=== PATIENT | male | born 1985 | race Caucasian/White ===

== ENCOUNTER → 2019-08-01 | Outpatient (CLI) | payer MEDICARE, OTHER ==
--- NOTE | 2019-08-01 15:49 | CT ---
EXAMINATION TYPE: CT sinus wo con DATE OF EXAM: 08/01/2019 COMPARISON: None HISTORY: Chronic sinusitis, recurrent sinus infections CT DLP: 632 mGycm CONTRAST: 0 mL of Isovue 300 The paranasal sinuses are examined in the axial plane at 2 mm thick sections. Reconstructed images i n the coronal plane were obtained. There is dental amalgam scatter artifact The maxillary sinuses are clear. The ethmoid air cells are clear. The sphenoid sinuses are clear. The frontal sinuses are clear. The septum is evaluated. There is septal deviation to the left. The ostiomeatal units are patent. IMPRESSIONS: 1. Normal paranasal sinus study. 2. Left septal deviation
== END | disposition home or self-care (01) ==
LOC: RADCTMAIN 15:24
PROVIDERS: ATTEND Family Medicine
DX: J34.2 Deviated nasal septum (principal); J32.9 Chronic sinusitis, unspecified
CPT/HCPCS: 70486

== ENCOUNTER → 2020-09-17 | Outpatient (CLI) | payer MEDICARE, OTHER ==
[2020-09-17 20:14] LABS: Basophils # (A) 0.06 X 10*3/uL (0.00-0.10); Basophils % (A) 0.7 %; Eosinophils # (A) 0.67 X 10*3/uL (0.04-0.35); Eosinophils % (A) 7.7 %; HCT 42.1 % (39.6-50.0); HGB 14.8 g/dL (13.0-17.0); Lymphocytes # (A) 3.45 X 10*3/uL (0.90-5.00); Lymphocytes % (A) 39.6 %; MCHC 35.2 g/dL (32.0-37.0); MCV 85.2 fL (80.0-97.0); Mean Platelet Volume 10.4 fL (9.5-12.2); Monocytes # (A) 0.44 X 10*3/uL (0.20-1.00); Neutrophils # (A) 4.01 X 10*3/uL (1.80-7.70); Platelet Count 235 X 10*3/uL (140-440); RBC 4.94 X 10*6/uL (4.40-5.60); RDW 13.3 % (11.5-14.5); WBC 8.72 X 10*3/uL (4.50-10.00)
[2020-09-18 12:06] LABS: African American GFR (CKD) 112.5 (60.0-200.0); Albumin 4.9 g/dL (3.80-4.90); Albumin/Globulin Ratio 2.04 (1.60-3.17); Anion Gap 15.7 mmol/L (4.00-12.00); Calcium 9.6 mg/dL (8.7-10.3); Carbon Dioxide 22.3 mmol/L (21.6-31.8); Globulin 2.4 g/dL (1.6-3.3); Non-African American GFR(CKD) 97.1 (60.0-200.0); Potassium 4.1 mmol/L (3.5-5.5); Total Bilirubin 0.6 mg/dL (0.3-1.2); Total Protein 7.3 g/dL (6.2-8.2)
== END | disposition home or self-care (01) ==
LOC: LABWHC1 13:51
PROVIDERS: ATTEND Physician Assistant
DX: G35 Multiple sclerosis (principal)
CPT/HCPCS: 36415; 80053; 85025

== ENCOUNTER 2020-12-20 23:37 | Observation (INO) | payer MEDICARE, OTHER ==
[2020-12-21] MEDS ORDERED: SODIUM CHLORIDE 0.9% 1,000 ML IV STA (01:07)
[2020-12-21] MEDS ORDERED: DEXAMETHASONE SOD PHOSPHATE 10 MG/ML 1 ML VIAL IVP STA ×2 (01:07→01:29)
[2020-12-21] MEDS ORDERED: levETIRAcetam IV 1,000 MG in SALINE 1 100ML.BAG IVPB ONE (01:15)
--- NOTE | 2020-12-21 01:21 | ED ---
Seizure HPI - General Chief Complaint: Seizure Stated Complaint: Seizure Source: EMS Mode of arrival: EMS - Related Data Allergies Allergy/AdvReac Type Severity Reaction Status Date / Time amoxicillin [From Augmentin] Allergy Rapid Verified 12/21/20 01:13 Heart Rate cephalexin [From Keflex] Allergy Unknown Verified 12/21/20 01:14 clavulanic acid Allergy Rapid Verified 12/21/20 01:13 [From Augmentin] Heart Rate Penicillins Allergy Unknown Verified 12/21/20 01:14 Sulfa (Sulfonamide Allergy Unknown Verified 12/21/20 01:15 Antibiotics) Review of Systems ROS Statement: Those systems with pertinent positive or pertinent negative responses have been documented in the HPI. ROS Other: All systems not noted in ROS Statement are negative. Past Medical History Past Medical History: No Reported History Additional Past Medical History / Comment(s): PER MOTHER History of Any Multi-Drug Resistant Organisms: None Reported Past Surgical History: No Surgical Hx Reported Past Psychological History: Depression Smoking Status: Never smoker Past Alcohol Use History: None Reported Past Drug Use History: None Reported Course Vital Signs 12/20/20 23:37 Temperature 98.0 F Pulse Rate 111 H Respiratory 18 Rate Blood Pressure 132/80 O2 Sat by Pulse 98 Oximetry Medical Decision Making - Lab Data Result diagrams: 12/21/20 00:20 12/21/20 00:20 Lab Results 12/21/20 12/21/20 12/21/20 Range/Units 00:20 00:20 01:46 WBC 7.8 (3.8-10.6) k/uL RBC 4.85 (4.30-5.90) m/uL Hgb 15.0 (13.0-17.5) gm/dL Hct 40.1 (39.0-53.0) % MCV 82.7 (80.0-100.0) fL MCH 30.9 (25.0-35.0) pg MCHC 37.3 H (31.0-37.0) g/dL RDW 13.9 (11.5-15.5) % Plt Count 202 (150-450) k/uL MPV 7.1 Neutrophils % 47 % Lymphocytes % 39 % Monocytes % 4 % Eosinophils % 6 % Basophils % 1 % Neutrophils # 3.7 (1.3-7.7) k/uL Lymphocytes # 3.1 (1.0-4.8) k/uL Monocytes # 0.3 (0-1.0) k/uL Eosinophils # 0.5 (0-0.7) k/uL Basophils # 0.1 (0-0.2) k/uL Hyperchromasia Marked Sodium 136 L (137-145) mmol/L Potassium 4.2 (3.5-5.1) mmol/L Chloride 105 (98-107) mmol/L Carbon Dioxide 22 (22-30) mmol/L Anion Gap 9 mmol/L BUN 13 (9-20) mg/dL Creatinine 0.86 (0.66-1.25) mg/dL Est GFR (CKD-EPI)AfAm >90 (>60 ml/min/1.73 sqM) Est GFR (CKD-EPI)NonAf >90 (>60 ml/min/1.73 sqM) Glucose 115 H (74-99) mg/dL Calcium 9.3 (8.4-10.2) mg/dL Magnesium 2.1 (1.6-2.3) mg/dL Total Bilirubin 0.5 (0.2-1.3) mg/dL AST 30 (17-59) U/L ALT 43 (4-49) U/L Alkaline Phosphatase 85 (38-126) U/L Total Protein 7.2 (6.3-8.2) g/dL Albumin 4.7 (3.5-5.0) g/dL Urine Color Light Yellow Urine Appearance Clear (Clear) Urine pH 5.5 (5.0-8.0) Ur Specific [place] 1.014 (1.001-1.035) Urine Protein Trace H (Negative) Urine Glucose (UA) Negative (Negative) Urine Ketones Trace H (Negative) Urine Blood Negative (Negative) Urine Nitrite Negative (Negative) Urine Bilirubin Negative (Negative) Urine Urobilinogen <2.0 (<2.0) mg/dL Ur Leukocyte Esterase Negative (Negative) Salicylates <1.0 mg/dL Urine Opiates Screen Not Detected (NotDetected) Ur Oxycodone Screen Not Detected (NotDetected) Urine Methadone Screen Not Detected (NotDetected) Ur Propoxyphene Screen Not Detected (NotDetected) Acetaminophen <10.0 ug/mL Ur Barbiturates Screen Not Detected (NotDetected) U Tricyclic Antidepress Detected H (NotDetected) Ur Phencyclidine Scrn Not Detected (NotDetected) Ur Amphetamines Screen Not Detected (NotDetected) U Methamphetamines Scrn Not Detected (NotDetected) U Benzodiazepines Scrn Not Detected (NotDetected) Urine Cocaine Screen Not Detected (NotDetected) U Marijuana (THC) Screen Not Detected (NotDetected) Serum Alcohol <10 mg/dL - EKG Data -: EKG Interpreted by Me (EKG is sinus rhythm 88 IL 172 QRS 90 QTC 440) Disposition Clinical Impression: New onset seizure Disposition: ADMITTED IP TO THIS HOSP Condition: Fair Is patient prescribed a controlled substance at d/c from ED?: No
--- NOTE | 2020-12-21 01:25 | CT ---
EXAMINATION TYPE: CT brain wo con DATE OF EXAM: 12/21/2020 COMPARISON: None HISTORY: WITNESSED SEIZURE CT DLP: 1091.4 mGycm Automated exposure control for dose reduction was used. Ventricles and sulci appear normal. There is no mass effect nor midline shift. There is no sign of in tracranial hemorrhage. The calvarium is intact. There is no evidence of cerebral edema. Skull base is intact. IMPRESSION: Negative unenhanced head CT scan.
[2020-12-21 01:38] LABS: Basophils # (A) 0.1 k/uL (0-0.2); Basophils % (A) 1 %; Eosinophils # (A) 0.5 k/uL (0-0.7); Eosinophils % (A) 6 %; HCT 40.1 % (39.0-53.0); Hyperchromasia Marked; Lymphocytes # (A) 3.1 k/uL (1.0-4.8); Lymphocytes % (A) 39 %; MCH 30.9 pg (25.0-35.0); MCHC 37.3 g/dL (31.0-37.0); MCV 82.7 fL (80.0-100.0); Mean Platelet Volume 7.1; Monocytes # (A) 0.3 k/uL (0-1.0); Monocytes % (A) 4 %; Neutrophils # (A) 3.7 k/uL (1.3-7.7); Neutrophils % (A) 47 %; Platelet Count 202 k/uL (150-450); RBC 4.85 m/uL (4.30-5.90); RDW 13.9 % (11.5-15.5); WBC 7.8 k/uL (3.8-10.6)
[2020-12-21] MEDS ORDERED: NALOXONE 0.4 MG/ML 1 ML VIAL IV PRN (01:51)
[2020-12-21] MEDS ORDERED: ONDANSETRON 4 MG/2 ML VIAL IVP PRN (01:53)
[2020-12-21] MEDS ORDERED: LORazepam 2 MG/ML INJ IV STA (01:54)
[2020-12-21] MEDS ORDERED: LORazepam 2 MG/ML INJ IV PRN (01:54)
[2020-12-21 02:00] LABS: Appearance,Urine Clear (Clear); Bilirubin,Urine Negative (Negative); Blood,Urine Negative (Negative); Color,Urine Light Yellow; Glucose,Urine (UA) Negative (Negative); Ketones,Urine Trace (Negative); Leukocyte Esterase,Urine Negative (Negative); Nitrite,Urine Negative (Negative); PH, Urine 5.5 (5.0-8.0); Protein,Urine Trace (Negative); Specific Gravity,Urine 1.014 (1.001-1.035); Urobilinogen,Urine <2.0 mg/dL (<2.0)
[2020-12-21 02:10] LABS: ALT 43 U/L (4-49); AST 30 U/L (17-59); Acetaminophen <10.0 ug/mL; African American GFR (CKD) >90 (>60 ml/min/1.73 sqM); Albumin 4.7 g/dL (3.5-5.0); Alcohol <10 mg/dL; Alkaline Phosphatase 85 U/L (38-126); Anion Gap 9 mmol/L; Blood Urea Nitrogen 13 mg/dL (9-20); Calcium 9.3 mg/dL (8.4-10.2); Carbon Dioxide 22 mmol/L (22-30); Chloride 105 mmol/L (98-107); Glucose 115 mg/dL (74-99); Magnesium 2.1 mg/dL (1.6-2.3); Non-African American GFR(CKD) >90 (>60 ml/min/1.73 sqM); Potassium 4.2 mmol/L (3.5-5.1); Salicylate <1.0 mg/dL; Sodium 136 mmol/L (137-145); Total Bilirubin 0.5 mg/dL (0.2-1.3); Total Protein 7.2 g/dL (6.3-8.2)
[2020-12-21 02:17] LABS: Amphetamine Screen,Urine Not Detected (NotDetected); Barbiturate Screen,Urine Not Detected (NotDetected); Benzodiazepines Screen,Urine Not Detected (NotDetected); Cocaine Screen,Urine Not Detected (NotDetected); Methadone Screen, Urine Not Detected (NotDetected); Opiate Screen,Urine Not Detected (NotDetected); Oxycodone Screen, Urine Not Detected (NotDetected); Phencyclidine Screen,Urine Not Detected (NotDetected); Tricyclic Antidepressant,Urine Detected (NotDetected)
[2020-12-21 02:18] LABS: Urn Cannabinoid Scrn Not Detected (NotDetected)
[2020-12-21] MEDS: SODIUM CHLORIDE 0.9% 1,000 ML IV SCH ×3 (02:32→17:45)
--- NOTE | 2020-12-21 04:38 | P.HPIM ---
History of Present Illness H&P Date: 12/21/20 The patient is a 35-year-old male with a PMH of remitting/relapsing multiple sclerosis diagnosed at age 19, completed by optic neuritis of the right eye and left sided weakness who presents to the emergency room after a seizure. History supplemented by the patient's mother at the bedside who witnessed the episode. The patient states he was watching a television show on his chair and their house and the next thing he remembers is waking up in the ambulance. The patient's mom who was sitting in the same room noticed that he all of a sudden said "oh my God" and she noticed that he appeared to be posturing. When she walked over to him, she described a grand mal seizure during which she noticed blood coming out of his mouth. The patient reports biting his tongue and having post ictal confusion and fatigue. Denied urinary incontinence. He denied any prior history of seizure and has never been on antiseizure medications. He denied recent fever or URI like symptoms. Denied racing chest discomfort, shortness of breath, cough, nausea, vomiting, abdominal pain. Laboratory evaluation from the emergency room was reviewed. CT brain was unremarkable with EKG showing normal sinus rhythm at [address]/T-wave changes noted as reviewed by me. Review of systems: Pertinent positives and negatives as discussed in HPI, a complete review of systems was performed and all other systems are negative. Physical examination: General: non toxic, no distress, appears at stated age, obese Derm: no unusual rashes/lesions no unusual ecchymoses, warm, dry Head: atraumatic, normocephalic, symmetric Eyes: EOMI, no lid lag, anicteric sclera, pupils equal round reactive to light ENT: Nose and ears atraumatic, no thrush, no pharyngeal erythema Neck: No thyromegaly, no cervical lymphadenopathy, trachea midline, supple Mouth: no lip lesion, mucus membranes moist, lateral tongue bite bilaterally Cardiovascular: S1S2 reg, no murmur, positive posterior tibial pulse bilateral, no edema, capillary refill less than 2 seconds Lungs: CTA bilateral, no rhonchi, no rales , no accessory muscle use Abdominal: soft, nontender to palpation, no guarding, no appreciable org anomegaly, normal bowel sounds Ext: no gross muscle atrophy, muscle strength 5 out of 5 of her RUE and RLE grossly, strength 4/5 of LUE/LLE grossly, no contractures Neuro: CN II-XI grossly intact, light touch intact all 4 extremities, finger to nose within normal limits, Psych: Alert, oriented, appropriate affect Assessment/plan New-onset seizure with history of multiple sclerosis -Continue with Keppra -Seizure precautions -Neurology consulted -Continue with home MS medications DVT prophylaxis -Heparin subcu The patient is admitted with an anticipated less than 2 midnight stay for evaluation of new onset seizure CODE STATUS: Full Code Discussed with: patient Anticipated discharge date: in am Anticipated discharge place: Home Past Medical History Past Medical History: No Reported History Additional Past Medical History / Comment(s): PER MOTHER History of Any Multi-Drug Resistant Organisms: None Reported Past Surgical History: No Surgical Hx Reported Past Psychological History: Depression Smoking Status: Never smoker Past Alcohol Use History: None Reported Past Drug Use History: None Reported Medications and Allergies Allergies Allergy/AdvReac Type Severity Reaction Status Date / Time amoxicillin [From Augmentin] Allergy Rapid Verified 12/21/20 01:13 Heart Rate cephalexin [From Keflex] Allergy Unknown Verified 12/21/20 01:14 clavulanic acid Allergy Rapid Verified 12/21/20 01:13 [From Augmentin] Heart Rate Penicillins Allergy Unknown Verified 12/21/20 01:14 Sulfa (Sulfonamide Allergy Unknown Verified 12/21/20 01:15 Antibiotics) Physical Exam Vitals: Vital Signs Temp Pulse Resp BP Pulse Ox 12/21/20 03:28 81 22 130/79 98 12/20/20 23:37 98.0 F 111 H 18 132/80 98 Intake and Output 12/20/20 12/20/20 12/21/20 14:59 22:59 06:59 Other: Weight 99.79 kg Results CBC & Chem 7: 12/21/20 00:20 12/21/20 00:20 Labs: Abnormal Lab Results - Last 24 Hours (Table) 12/21/20 12/21/20 12/21/20 Range/Units 00:20 00:20 01:46 MCHC 37.3 H (31.0-37.0) g/dL Sodium 136 L (137-145) mmol/L Glucose 115 H (74-99) mg/dL Urine Protein Trace H (Negative) Urine Ketones Trace H (Negative) U Tricyclic Antidepress Detected H (NotDetected)
[2020-12-21] MEDS: HEPARIN SODIUM,PORCINE/PF 5,000 UNIT/0.5 ML SYRINGE SQ SCH ×2 (08:19→17:45)
[2020-12-21] MEDS ORDERED: FLUTICASONE 50MCG/SPRAY NASAL 16GM EA NOSTRIL PRN (09:49)
[2020-12-21] MEDS ORDERED: BACLOFEN 10 MG TAB PO PRN (09:49)
[2020-12-21] MEDS ORDERED: DALFAMPRIDINE 10 MG PO SCH (10:00)
[2020-12-21] MEDS: ATORVASTATIN 10 MG TAB PO SCH (13:41)
[2020-12-21] MEDS: METOPROLOL SUCCINATE (ER) 50 MG TAB.ER.24H PO SCH (13:41)
[2020-12-21] MEDS: OXYBUTYNIN XL 5 MG TAB.ER.24 PO SCH (13:41)
[2020-12-21] MEDS: PANTOPRAZOLE 40 MG TABLET PO SCH (13:41)
[2020-12-21] MEDS: amLODIPine 10 MG TAB PO SCH (13:42)
[2020-12-21] MEDS: levETIRAcetam IV 1,000 MG in SALINE 1 100ML.BAG IVPB SCH (14:58)
--- NOTE | 2020-12-21 15:31 | P.CNNES ---
History of Present Illness Consult date: 12/21/20 Requesting physician: Avni Cedillo Reason for Consult: New onset seizure History of Present Illness: Patient is a 35-year-old male with history of multiple sclerosis since age 18, follows up with Dr. Ortiz at [facility]. Patient was initially placed on Avonex, then Rebif, but developed side effects (lost eyesight temporarily, which did come back). He was switched to Tysabri and has been on Tysabri for a number of years. He is tolerating it well, and the last infusion was on 12/18/2020. He is JCV negative. He walks without using any device although he does drag his left leg. He used a cane before but not anymore. Patient never had any history of seizures. Patient's mother was also present. He was watching TV, sitting in the recliner, when suddenly he started feeling unusual symptom and he cried out loud "Oh my God". Shortly after his legs stiffened up, arms went out, head deviated to the right, and his whole body was stiff and he started shaking, could not respond. He bit his tongue and lost control of urine. His mother called EMS, and when they arrived, patient was laying in the recliner, postictal following a seizure. Patient was unresponsive. Patient denied any recent medication changes, illnesses, drugs or alcohol or trauma. There was some blood noted around the patient's mouth due to him biting on his tongue. The seizure occurred 5 minutes prior to their arrival and lasted for a minute. Patient's vitals at the scene was blood pressure 104/50, pulse rate for and 15, saturation 98% respiration 18. His vital signs on arrival blood pressure 132/80, pulse 111, temperature 98.0. No previous history of seizures or any family history of epilepsy. No history of drug use or alcohol. No diabetes. No tobacco use. Patient's mother is noticing that since the seizure, he is asking same question over and over. He is noticing some itchy eyes as if these crust in the eyes. Patient's blood test shows normal CBC, sodium 136 potassium 4.2, normal renal function, normal hepatic panel. UA is negative. Urine drug screen positive for tricyclics. Blood alcohol level negative. Hwang virus PCR negative. Patient's last JCV titers are 0.18 which is negative on 09/17/2020. CT head is normal. EKG shows normal sinus rhythm. Review of Systems As above in detail. All other 14 point review systems reviewed and noncontributory. Past Medical History Past Medical History: No Reported History Additional Past Medical History / Comment(s): PER MOTHER History of Any Multi-Drug Resistant Organisms: None Reported Past Surgical History: No Surgical Hx Reported Past Psychological History: Depression Smoking Status: Never smoker Past Alcohol Use History: None Reported Past Drug Use History: None Reported Medications and Allergies Home Medications Medication Instructions Recorded Confirmed Type Acetaminophen-Codeine 300-30mg 1 tab PO HS PRN 12/21/20 12/21/20 History [Tylenol w/codeine #3] Atorvastatin Calcium [Lipitor] 10 mg PO DAILY 12/21/20 12/21/20 History Baclofen [Lioresal] 20 mg PO TID PRN 12/21/20 12/21/20 History Cetirizine HCl [Zyrtec] 10 mg PO DAILY 12/21/20 12/21/20 History Dalfampridine [Dalfampridine ER] 10 mg PO Q12H 12/21/20 12/21/20 History Docusate [Colace] 100 mg PO BID 12/21/20 12/21/20 History Escitalopram [Lexapro] 20 mg PO DAILY 12/21/20 12/21/20 History Fluticasone Nasal [place] [Flonase 2 spray EA NOSTRIL DAILY PRN 12/21/20 12/21/20 History Nasal [place]] Ibuprofen [Motrin] 800 mg PO Q8H PRN 12/21/20 12/21/20 History Ketoconazole 2% Shampoo [Nizoral] 1 applic TOPICAL DIRECTED PRN 12/21/20 12/21/20 History Metoprolol Succinate (ER) [Toprol 50 mg PO DAILY 12/21/20 12/21/20 History Xl] Pantoprazole [Protonix] 40 mg PO DAILY 12/21/20 12/21/20 History Tolterodine ER [Detrol LA] 4 mg PO DAILY 12/21/20 12/21/20 History Triamcinolone 0.1% Cream [Kenalog 1 applic TOPICAL TID 12/21/20 12/21/20 History 0.1% Cream] amLODIPine [Norvasc] 10 mg PO DAILY 12/21/20 12/21/20 History amantadine HCL [Amantadine] 100 mg PO BID 12/21/20 12/21/20 History Allergies Allergy/AdvReac Type Severity Reaction Status Date / Time amoxicillin [From Augmentin] Allergy Rapid Verified 12/21/20 09:47 Heart Rate cephalexin [From Keflex] Allergy Unknown Verified 12/21/20 09:47 chlorpheniramine Allergy Unknown Verified 12/21/20 09:47 [From Extendryl] dexchlorpheniramine Allergy Unknown Verified 12/21/20 09:47 [From Extendryl] Penicillins Allergy Unknown Verified 12/21/20 09:47 phenylephrine Allergy Unknown Verified 12/21/20 09:47 [From Extendryl] scopolamine [From Extendryl] Allergy Unknown Verified 12/21/20 09:47 Sulfa (Sulfonamide Allergy Unknown Verified 12/21/20 09:47 Antibiotics) clavulanic acid AdvReac Rapid Verified 12/21/20 09:47 [From Augmentin] Heart Rate Physical Examination - Vital Signs Vital Signs: Vital Signs Temp Pulse Resp BP Pulse Ox 12/21/20 15:00 97 20 115/66 99 12/21/20 12:30 98.2 F 102 H 18 126/84 95 12/21/20 07:33 90 18 130/60 97 12/21/20 05:51 88 22 132/84 96 12/21/20 03:28 81 22 130/79 98 12/20/20 23:37 98.0 F 111 H 18 132/80 98 Intake and Output 12/21/20 12/21/20 12/21/20 06:59 14:59 22:59 Other: Weight 99.79 kg Patient is a young male, in no acute distress. Patient is alert awake oriented to time place and person. Speech and language functions are normal. Attention, concentration and fund of knowledge is adequate. On cranial examination, pupils are equal, round and reacting to light, visual jara are full on confrontation, extraocular muscles are intact with no nystagmus. No APD. Face is symmetric, tongue protrudes to the midline. Palatal elevation and sensation normal, hearing and shoulder shrug normal, facial sensation normal. Shoulder shrug normal. On muscle strength testing, there is a mild left pronator drift. His strength is (right/left) deltoid 4+/4, biceps 5/5, triceps 5/5, practical nurse 5/5-. In the lower limbs hip flexion is 5/5-, ankle dorsiflexion 5/5. Deep tendon reflexes are 1+ in the upper limbs, 2 at the knees, 1+ ankles and plantars are upgoing bilaterally. No clonus. Sensory to touch is equal with no neglect. Cerebellar function showed very mild dysmetria for [id number] testing only on the left. Patient has mild ataxia for [id number] testing bilaterally. Tone and bulk of muscles normal. Gait not checked. On general examination, there is no carotid bruit or murmur, S1-S2 audible. Abdomen is soft nontender. Chest is clear. Peripheral pulses are present. No edema. Results - Laboratory Findings CBC and BMP: 12/21/20 00:20 12/21/20 00:20 Abnormal Lab Findings: Abnormal Labs 12/21/20 12/21/20 12/21/20 00:20 00:20 01:46 MCHC 37.3 H Sodium 136 L Glucose 115 H Urine Protein Trace H Urine Ketones Trace H U Tricyclic Antidepress Detected H Assessment and Plan Assessment: * New onset seizure, unclear etiology. * History of relapsing remitting MS. Currently on Tysabri. Patient is JCV titer negative. * Obesity Plan: * MRI of the brain with and without contrast, rule out secondary cause of seizure. Rule out PML as patient has been on Tysabri for fairly long period of time. However his JCV titers had been negative as of 09/17/2020. * EEG * Patient was given a loading dose of Keppra 1000 mg in the ER, followed by 1000 mg twice a day. * Patient informed of [place] state law of no driving unless seizure free for 6 months, climbing ladders, operate dangerous machinery or unsupervised swimming. * Stop Ampyra because of new diagnosis of seizure (seizure being an absolute contraindication for Ampyra). * Neurology will follow.
--- NOTE | 2020-12-21 19:24 | MR ---
EXAMINATION TYPE: MR brain wo/w con DATE OF EXAM: 12/21/2020 COMPARISON: None HISTORY: New onset seizure, during which he hit his face, hx MS. CONTRAST: Standard multiplanar, multisequence MRI departmental protocol images were obtained without contrast a nd with 10 mL intravenous Gadavist gadolinium contrast. Ventricles have normal size. There is no mass effect nor midline shift. There is no evidence of intra cranial hemorrhage. There is extensive increased signal in the periventricular white matter with colo n isn't areas that measure up to 1.5 cm. There is thinning of the corpus callosum. There is involveme nt of the corpus callosum. There is no evidence of a cortical infarct. There is cerebral atrophy. There are white matter foci of increased signal in the left cerebellar peduncle measuring 6 mm. There is also small foci in the right cerebellar peduncle. The sella turcica appears normal. There is no e vidence of orbital mass. Contrast images show no pathologic enhancement. There is normal enhancement of the venous sinuses. IMPRESSION: Cerebral atrophy. Extensive white matter changes without enhancement are consistent with extensive de myelinating disease. No acute intracranial abnormality.
[2020-12-21] MEDS: DOCUSATE 100 MG CAP PO SCH (19:48)
--- NOTE | 2020-12-21 20:42 | EEG ---
ELECTROENCEPHALOGRAM REPORT DATE OF SERVICE: 12/21/2020 PREAMBLE: This is a 35-year-old male with history of MS. He presented with new-onset seizure. EEG FINDINGS: This is a 21-channel digital EEG recorded with video competent, utilizing 10/20 international system with referential and bipolar montages. Background consists of well developed, well regulated, moderate voltage activity in 8-9 hertz alpha. Background is posterior-dominant and is reactive to eye opening and closing. Photic driving response was not clearly seen. Different stages of sleep were not seen. There were two isolated occurrence of sharp-appearing waves involving the left temporal region, seen at 6th minute and 17th minute. The first one was during photic stimulation. These sharp-appearing waves were not identical in morphology and did not appear clearly epileptiform in morphology, therefore need to interpret with caution. No electrographic seizure was recorded. EKG channel showed no arrhythmia. IMPRESSION: This is a borderline abnormal EEG due to the presence of two isolated occurrence of sharp-appearing waves involving the left temporal region. Sharp waves may suggest underlying cortical irritability, although the morphology of these couple left temporal sharp waves were not identical and was not very clearly epileptiform, therefore need to interpret with caution. Suggest a prolonged EEG for further evaluation of any interictal epileptiform activity. No electrographic seizure was recorded. MMODL / IJN: [id number] / KEVAN
[2020-12-22] MEDS: levETIRAcetam IV 1,000 MG in SALINE 1 100ML.BAG IVPB SCH ×2 (01:40→11:10)
[2020-12-22] MEDS: HEPARIN SODIUM,PORCINE/PF 5,000 UNIT/0.5 ML SYRINGE SQ SCH ×3 (01:40→14:20)
[2020-12-22] MEDS: SODIUM CHLORIDE 0.9% 1,000 ML IV SCH ×2 (04:01→09:06)
[2020-12-22 08:06] VITALS: BP 121/75; PULSE 86; RESP 16; TEMP 97.9
[2020-12-22] MEDS: OXYBUTYNIN XL 5 MG TAB.ER.24 PO SCH (08:59)
[2020-12-22] MEDS ORDERED: ESCITALOPRAM 20 MG TAB PO SCH (09:00)
[2020-12-22] MEDS: PANTOPRAZOLE 40 MG TABLET PO SCH (09:00)
[2020-12-22] MEDS: DOCUSATE 100 MG CAP PO SCH (09:00)
[2020-12-22] MEDS: ATORVASTATIN 10 MG TAB PO SCH (09:01)
[2020-12-22] MEDS: METOPROLOL SUCCINATE (ER) 50 MG TAB.ER.24H PO SCH (09:01)
[2020-12-22] MEDS: amLODIPine 10 MG TAB PO SCH (09:02)
[2020-12-22 11:24] LABS: Basophils # (A) 0.03 X 10*3/uL (0.00-0.10); Basophils % (A) 0.3 %; Eosinophils # (A) 0.06 X 10*3/uL (0.04-0.35); Eosinophils % (A) 0.6 %; HGB 13.4 g/dL (13.0-17.0); Lymphocytes # (A) 3.27 X 10*3/uL (0.90-5.00); Lymphocytes % (A) 30.5 %; MCH 28.9 pg (27.0-32.0); MCHC 34.4 g/dL (32.0-37.0); MCV 84.2 fL (80.0-97.0); Mean Platelet Volume 9.9 fL (9.5-12.2); Monocytes % (A) 6.5 %; Neutrophils # (A) 6.58 X 10*3/uL (1.80-7.70); Neutrophils % (A) 61.4 %; Platelet Count 196 X 10*3/uL (140-440); RBC 4.63 X 10*6/uL (4.40-5.60); RDW 13.7 % (11.5-14.5); WBC 10.72 X 10*3/uL (4.50-10.00)
[2020-12-22 12:00] LABS: African American GFR (CKD) 134.1 (60.0-200.0); Albumin 4.4 g/dL (3.8-4.9); Albumin/Globulin Ratio 2.32 (1.60-3.17); Anion Gap 13.4 mmol/L (4.00-12.00); BUN/Creat Ratio 13.63 Ratio (12.00-20.00); Blood Urea Nitrogen 10.9 mg/dL (9.0-27.0); Calcium 8.8 mg/dL (8.7-10.3); Carbon Dioxide 21.6 mmol/L (21.6-31.8); Globulin 1.9 g/dL (1.6-3.3); Non-African American GFR(CKD) 115.7 (60.0-200.0); Potassium 3.8 mmol/L (3.5-5.5); Total Bilirubin 0.4 mg/dL (0.30-1.20); Total Protein 6.3 g/dL (6.2-8.2)
--- NOTE | 2020-12-22 13:37 | P.PN ---
Subjective Progress Note Date: 12/22/20 Patient was seen for a follow-up. No further seizure type spells. Patient is much more alert and awake. Patient's mother was also present. Denies any side effects of medication. Objective - Vital Signs Vital signs: Vital Signs Temp 97.9 F 12/22/20 08:00 Pulse 86 12/22/20 08:00 Resp 16 12/22/20 08:00 BP 121/75 12/22/20 08:00 Pulse Ox 96 12/22/20 08:00 Intake & Output 12/21/20 12/22/20 12/22/20 18:59 06:59 18:59 Intake Total 10 Output Total 700 Balance -690 Intake: IV 10 Invasive Line 1 10 Output: Urine 700 Other: Voiding Method Urinal Urinal # Voids 1 - Exam Patient more alert and awake. Otherwise exemption unchanged. - Labs CBC & Chem 7: 12/22/20 06:54 12/22/20 06:54 Labs: Abnormal Lab Results - Last 24 Hours (Table) 12/22/20 Range/Units 06:54 WBC 10.72 H (4.50-10.00) X 10*3/uL Hct 39.0 L (39.6-50.0) % Absolute Nucleated RBC 0.08 H (0.00-0.00) X 10*3/uL Immature Gran # 0.08 H (0.00-0.04) X 10*3/uL NRBC/100 WBC Diff 0.7 H (0.0-0.0) /100 WBCS Assessment and Plan Assessment: * New onset seizure, unclear etiology. * History of relapsing remitting MS. Currently on Tysabri. Patient is JCV titer negative. * Obesity Plan: * MRI of the brain with and without contrast, was performed, which revealed cerebral atrophy. Extensive white matter changes without enhancement are consistent with extensive demyelinating disease. No acute process. No evidence of PML. Patient's last JCV titers was negative as of 09/17/2020. * EEG was performed, which was borderline abnormal EEG due to presence of 2 isolated occurrence of sharp-appearing waves involving the left temporal region. Sharp waves may suggest underlying cortical irritability, although the morphology of these couple left temporal sharp waves but not identical and was not very clearly epileptiform, therefore need to interpret with caution. Suggest a prolonged EEG for further evaluation of any interictal epileptiform activity. Patient will be scheduled for outpatient 2-1/2 hours EEG. Patient will follow up with his neurologist. * We will switch from IV to oral Keppra 750 mg twice a day. * Patient informed of [place] state law of no driving unless seizure free for 6 months, climbing ladders, operate dangerous machinery or unsupervised swimming. * Stop Ampyra because of new diagnosis of seizure (seizure being an absolute contraindication for Ampyra). * Neurologically clear for discharge.
--- NOTE | 2020-12-22 16:09 | P.DS ---
Providers Date of admission: 12/21/20 01:51 Expected date of discharge: 12/22/20 Attending physician: Manny Correa MD Consults: 12/21/20 01:52 Consult Physician Routine Consulting Provider: Micah Mccarty Consult Reason/Comments: mark Do you want consulting provider notified?: Yes Primary care physician: Terri Garza [facility] Course: This is a 35-year-old male with complex past medical history significant for multiple sclerosis following get [facility] presented to the emergency room with a seizure. This was a new onset seizure for the patient. Patient was evaluated in the ER and admitted to the hospital with neurology consultation. Patient underwent MRI of the brain showing evidence of underlying MS and an EEG showing evidence of epileptiform activity. Patient was started on Keppra 750 mg twice daily. Nephrology advised to have patient get a prolonged EEG as an outpatient. His home dose of Ampyra will be discontinued as directed by neurology. Patient will be discharged home in a stable condition. He will follow-up with his neurologist as directed. For further details about this hospitalization please refer to the electronic chart. Physical exam: General: The patient is awake and alert, in no distress Eye: there is normal conjunctiva bilaterally. Neck: The neck is supple, there is no JVD. Cardiovascular: Normal S1-S2, no S3-S4, no murmurs. Respiratory: Lungs clear to auscultation bilaterally Gastrointestinal: Abdomen is soft, nontender Musculoskeletal: There is no pedal edema. Neurological:. Speech is normal. Skin: Skin is warm and dry Patient Condition at Discharge: Fair Plan - Discharge Summary New Discharge Prescriptions: New levETIRAcetam [Keppra] 750 mg PO Q12HR #60 tab Continue Tolterodine ER [Detrol LA] 4 mg PO DAILY Fluticasone Nasal [place] [Flonase Nasal [place]] 2 spray EA NOSTRIL DAILY PRN PRN Reason: Congestion Docusate [Colace] 100 mg PO BID Baclofen [Lioresal] 20 mg PO TID PRN PRN Reason: Muscle Spasm Atorvastatin Calcium [Lipitor] 10 mg PO DAILY amantadine HCL [Amantadine] 100 mg PO BID Acetaminophen-Codeine 300-30mg [Tylenol w/codeine #3] 1 tab PO HS PRN PRN Reason: Pain Pantoprazole [Protonix] 40 mg PO DAILY Metoprolol Succinate (ER) [Toprol XL] 50 mg PO DAILY Escitalopram [Lexapro] 20 mg PO DAILY amLODIPine [Norvasc] 10 mg PO DAILY Triamcinolone 0.1% Cream [Kenalog 0.1% Cream] 1 applic TOPICAL TID Ketoconazole 2% Shampoo [Nizoral] 1 applic TOPICAL DIRECTED PRN PRN Reason: irritation Discontinued Ibuprofen [Motrin] 800 mg PO Q8H PRN PRN Reason: Pain Dalfampridine [Dalfampridine ER] 10 mg PO Q12H Cetirizine HCl [Zyrtec] 10 mg PO DAILY Discharge Medication List Acetaminophen-Codeine 300-30mg [Tylenol w/codeine #3] 1 tab PO HS PRN 12/21/20 [History] Atorvastatin Calcium [Lipitor] 10 mg PO DAILY 12/21/20 [History] Baclofen [Lioresal] 20 mg PO TID PRN 12/21/20 [History] Docusate [Colace] 100 mg PO BID 12/21/20 [History] Escitalopram [Lexapro] 20 mg PO DAILY 12/21/20 [History] Fluticasone Nasal [place] [Flonase Nasal [place]] 2 spray EA NOSTRIL DAILY PRN 12/21/20 [History] Ketoconazole 2% Shampoo [Nizoral] 1 applic TOPICAL DIRECTED PRN 12/21/20 [History] Metoprolol Succinate (ER) [Toprol XL] 50 mg PO DAILY 12/21/20 [History] Pantoprazole [Protonix] 40 mg PO DAILY 12/21/20 [History] Tolterodine ER [Detrol LA] 4 mg PO DAILY 12/21/20 [History] Triamcinolone 0.1% Cream [Kenalog 0.1% Cream] 1 applic TOPICAL TID 12/21/20 [History] amLODIPine [Norvasc] 10 mg PO DAILY 12/21/20 [History] amantadine HCL [Amantadine] 100 mg PO BID 12/21/20 [History] levETIRAcetam [Keppra] 750 mg PO Q12HR #60 tab 12/22/20 [Rx] Follow up Appointment(s)/Referral(s): Terri Garza MD [Primary Care Provider] - 1-2 days Patient Instructions/Handouts: Seizure/Epilepsy Discharge Instructions & Follow-Up Discharge Disposition: HOME SELF-CARE
[2020-12-22] MEDS ORDERED: levETIRAcetam 250 MG TAB PO SCH (21:00)
== END 2020-12-22 16:12 | disposition home or self-care (01) ==
LOC: EC 23:37 → INTOOBSV 12-21 01:51 → OBSVTOIN 12-21 01:51 → 5NMEDONC 12-21 01:51 → 6NMEDSUR 12-21 13:29
PROVIDERS: ADMIT Internal Medicine; ATTEND Internal Medicine
DX: R56.9 Unspecified convulsions (principal); G35 Multiple sclerosis; F32.A Depression, unspecified; H46.9 Unspecified optic neuritis; H57.89 Other specified disorders of eye and adnexa; E66.9 Obesity, unspecified; Z68.31 Body mass index [BMI] 31.0-31.9, adult; Z88.0 Allergy status to penicillin; Z20.822 Contact with and (suspected) exposure to COVID-19; Z88.1 Allergy status to other antibiotic agents; Z88.2 Allergy status to sulfonamides; Z88.8 Allergy status to other drugs, medicaments and biological substances; Z79.899 Other long term (current) drug therapy
CPT/HCPCS: 96361 ×3; 96366; 96376; 96365; 96375; 99285; 36415; 95816; 93005; 80053 ×2; 83735; 85025 ×2; 81003; 80306; 80143; 87635; 80179; 70450; 70553; G0378 ×3; G0480; J2060; J1100; J1953 ×2; A9585; J1644; 80320

== ENCOUNTER → 2020-12-28 | Outpatient (CLI) | payer MEDICARE, OTHER | LOC: NEUROMAIN 07:46 | PROVIDERS: ATTEND Psychiatry & Neurology Neurology | DX: G40.909 Epilepsy, unspecified, not intractable, without status epilepticus (principal); Z88.1 Allergy status to other antibiotic agents; Z88.0 Allergy status to penicillin; Z88.2 Allergy status to sulfonamides; Z88.8 Allergy status to other drugs, medicaments and biological substances | CPT/HCPCS: 95713 ==

== ENCOUNTER → 2021-04-05 | Outpatient (CLI) | payer MEDICARE, OTHER ==
--- NOTE | 2021-04-05 16:31 | CT ---
EXAMINATION TYPE: CT sinus wo con DATE OF EXAM: 04/05/2021 COMPARISON: CT dated 08/01/2019 HISTORY: Chronic sinusitis, upcoming sx on deviated septum CT DLP: 679.30 mGycm. Automated Exposure Control for Dose Reduction was Utilized. TECHNIQUE: CT scan of the sinuses is performed without contrast, axial images are obtained, coronal r eformatted images are also reviewed. FINDINGS: No significant mucosal thickening of the nasal fossa bilaterally. Mild deviation of the bony nasal se ptum convex to the left side. Pneumatized left vertical lamella bilaterally. Paradoxical middle turbi nates. Patent infundibulum and middle meatus bilaterally. Clear maxillary sinuses with intact bony boundarie s. Hypopneumatized right frontal sinus compartment. Unremarkable sphenoid sinus, ethmoid air cells an d left frontal sinus compartment. Patent sphenoethmoidal recesses and frontal ethmoidal recesses. Clear visualized mastoid air cells. U nremarkable visualized portion of the brain and orbits. Incomplete fusion of the left lamina of C2. IMPRESSION: No evidence of acute or chronic sinusitis. Incidental findings as described above.
== END | disposition home or self-care (01) ==
LOC: RADCTMAIN 15:25
PROVIDERS: ATTEND Otolaryngology
DX: J34.2 Deviated nasal septum (principal)
CPT/HCPCS: 70486

== ENCOUNTER 2021-05-19 07:02 | Day surgery (SDC) | payer MEDICARE, OTHER ==
[2021-05-18 09:26] VITALS: BMI 32.5
[~2021-05-19 07:02] MED LIST: CLINDAMYCIN 600 MG in DEXTROSE 5% IN WATER 50 ML IVPB PRN; DEXAMETHASONE SOD PHOSPHATE 4 MG/ML 1 ML VIAL IV ONE; DEXAMETHASONE SOD PHOSPHATE 4 MG/ML 1 ML VIAL IV PRN; FAMOTIDINE 20 MG/2 ML VIAL IV PRN; HYDROmorphone 0.5 MG/0.5 ML SYRINGE IVP PRN; LACTATED RINGERS 1,000 ML IV SCH; LIDOCAINE 1% (10MG/ML) FOR IV START INTRADERMA PRN; MIDAZOLAM 2 MG/2 ML VIAL IV PRN; ONDANSETRON 4 MG/2 ML VIAL IVP ONE; ONDANSETRON 4 MG/2 ML VIAL IVP PRN; Pre Op ABX Message 1 EACH MISC MISCELLANE ONE
[2021-05-19] MEDS ORDERED: OXYMETAZOLINE 0.05% NASL SPRAY 1 SPRAY BOTTLE ONE (07:20)
[2021-05-19] MEDS ORDERED: LACTATED RINGERS 1,000 ML IV ONE (07:35)
[2021-05-19] MEDS ORDERED: PROPOFOL 10 MG/ML 20 ML VIAL IV ONE (08:34)
[2021-05-19] MEDS ORDERED: MIDAZOLAM 2 MG/2 ML VIAL ONE (08:34)
[2021-05-19] MEDS ORDERED: fentaNYL (PF) 50 MCG/ML 2 ML AMP ONE (08:34)
[2021-05-19] MEDS ORDERED: SUCCINYLCHOLINE CHLORIDE 100 MG/5 ML SYR IV ONE (08:34)
[2021-05-19] MEDS ORDERED: LIDOCAINE 1%-EPI 1:100,000 20 ML VIAL SQ ONE (08:46)
[2021-05-19] MEDS ORDERED: EPINEPHrine 1 MG/ML (MDV) 30 ML VIAL TOPICAL ONE (08:46)
[2021-05-19] MEDS ORDERED: BACITRACIN ZINC 500 UNIT/GM OINT 28.4 GM TUBE TOPICAL ONE (08:55)
--- NOTE | 2021-05-19 09:14 | P.OP ---
Date of Procedure: 05/19/21 Preoperative Diagnosis: Deviated nasal septum Inferior turbinate hypertrophy Postoperative Diagnosis: Same Procedure(s) Performed: Septoplasty Outfracture and submucous resection of the inferior turbinates Anesthesia: ANGELA Surgeon: Robb Doyle Estimated Blood Loss (ml): 3 Pathology: other (Nasal septal bone and cartilage) Condition: stable Disposition: PACU Indications for Procedure: This is a 36-year-old white male with chronic nasal airway obstruction bilaterally Operative Findings: Bilateral nasal septal deviation with inferior turbinate hypertrophy bilateral Description of Procedure: DESCRIPTION OF PROCEDURE: The patient was brought to the operative suite, placed in the supine position. The patient underwent induction of general anesthesia with oral endotracheal intubation without difficulty. The patient was prepped and draped in the usual aseptic fashion. 1% lidocaine with 1:100,000 epinephrine was infused submucosally on both sides of the nasal septum. While this was taking vasoconstrictive effect, the inferior turbinates were infractured with a [place] elevator. Partial submucous resection of the inferior turbinates was performed with Coblation device ablating a portion of the submucosal soft tissue. The inferior turbinates were then outfractured with a [place] elevator. A left hemitransfixion incision was then made through the mucoperichondrial. Mucoperiosteal flap on the left elevated. Bony cartilaginous junction was disarticulated and mucoperiosteal flap on the right was elevated. Bony nasoseptal deformity were removed with Pat forceps and an inferior cartilaginous strip was removed, leaving a full 1.5 cm caudal strut. Checking intranasally, this corrected the nasal septal deformities and the hemitransfixion incision was closed with running 4-0 chromic suture. The bilateral Sosa airway splints coated in bacitracin ointment were placed in the nasal cavities and sutured transseptally with 4-0 nylon suture. The patient was then suctioned in an orogastric fashion. The patient was allowed to emerge from general anesthesia, having tolerated the procedure well and was extubated in the operating suite, transferred to postoperative recovery area in satisfactory condition.
[2021-05-19 09:34] VITALS: RESP 16; TEMP 97.5
[2021-05-19] MEDS ORDERED: IV FLUID CONTINUATION 1,000 ML IV ONE (10:14)
[2021-05-19 10:48] VITALS: BP 117/78; PULSE 81
== END 2021-05-19 11:15 | disposition home or self-care (01) ==
LOC: OR 07:02
PROVIDERS: ATTEND Otolaryngology
DX: J34.2 Deviated nasal septum (principal); J34.3 Hypertrophy of nasal turbinates; J32.2 Chronic ethmoidal sinusitis; I10 Essential (primary) hypertension; E11.9 Type 2 diabetes mellitus without complications; F41.9 Anxiety disorder, unspecified; G35 Multiple sclerosis; G43.909 Migraine, unspecified, not intractable, without status migrainosus; R56.9 Unspecified convulsions; K21.9 Gastro-esophageal reflux disease without esophagitis; H91.90 Unspecified hearing loss, unspecified ear; Z85.3 Personal history of malignant neoplasm of breast; Z85.038 Personal history of other malignant neoplasm of large intestine; Z79.899 Other long term (current) drug therapy; Z88.0 Allergy status to penicillin; Z88.2 Allergy status to sulfonamides; Z88.8 Allergy status to other drugs, medicaments and biological substances; Z88.1 Allergy status to other antibiotic agents
CPT/HCPCS: 88300; 30520; 30930; J0171; J2250; J1100; J2405; J3010; J0330; J2704

== ENCOUNTER → 2021-12-31 | Outpatient (CLI) | payer MEDICARE, OTHER ==
--- NOTE | 2022-01-01 05:10 | MR ---
EXAMINATION TYPE: MR brain wo/w con DATE OF EXAM: 12/31/2021 COMPARISON: 12/21/2020 HISTORY: Seizures, MS. CONTRAST: Standard multiplanar, multisequence MRI departmental protocol images were obtained without contrast a nd with 8.5 mL intravenous Gadavist gadolinium contrast. Multiplanar multi echo imaging of the brain performed without and subsequently with the IV contrast. There is mild cerebral cortical atrophy. There is no mass effect or midline shift. No sign of intracr anial hemorrhage. There is thinning of the corpus callosum. Diffusion images show no sign of an acute infarct. There is moderate patchy abnormal increased signal throughout the periventricular white mat ter that measures up to 1.5 cm in thickness. Areas are coalescent around the lateral ventricles. The sella turcica appears normal. Brainstem is intact. No evidence of a cerebellar mass. Contrast images show no pathologic enhancement. There is normal enhancement of the venous sinuses. IMPRESSION: Extensive periventricular white matter signal changes consistent with demyelinating disease. No signi ficant change compared to old exam. No evidence of any significant new lesion.
== END | disposition home or self-care (01) ==
LOC: RADMRIMAIN 15:30
PROVIDERS: ATTEND Psychiatry & Neurology Neurology
DX: R90.82 White matter disease, unspecified (principal); G35 Multiple sclerosis; R56.9 Unspecified convulsions
CPT/HCPCS: 70553; A9585

== ENCOUNTER → 2022-01-19 | Outpatient (CLI) | payer MEDICARE, OTHER | END | disposition home or self-care (01) | LOC: LABWHC1 10:00 | PROVIDERS: ATTEND Psychiatry & Neurology Neurology | DX: R56.9 Unspecified convulsions (principal) | CPT/HCPCS: 36415; 80177 ==

== ENCOUNTER → 2022-09-12 | Outpatient (CLI) | payer MEDICARE, OTHER | END | disposition home or self-care (01) | LOC: LABWHC1 09:06 | PROVIDERS: ATTEND Psychiatry & Neurology Neurology | DX: R56.9 Unspecified convulsions (principal) | CPT/HCPCS: 36415; 80177 ==

== ENCOUNTER → 2022-12-21 | Outpatient (CLI) | payer MEDICARE, OTHER ==
[2022-12-21 16:19] LABS: Basophils # (A) 0.04 X 10*3/uL (0.00-0.10); Basophils % (A) 0.5 %; Eosinophils # (A) 0.56 X 10*3/uL (0.04-0.35); Eosinophils % (A) 7.5 %; HCT 42.3 % (39.6-50.0); HGB 14.7 g/dL (13.0-17.0); Lymphocytes # (A) 3.16 X 10*3/uL (0.90-5.00); Lymphocytes % (A) 42.1 %; MCH 29.3 pg (27.0-32.0); MCHC 34.8 g/dL (32.0-37.0); MCV 84.4 FL (80.0-97.0); Mean Platelet Volume 10.1 FL (9.5-12.2); Monocytes # (A) 0.51 X 10*3/uL (0.20-1.00); Monocytes % (A) 6.8 %; NRBC Per 100 WBC 0.07 X 10*3/uL (0.00-0.01); Neutrophils # (A) 3.15 X 10*3/uL (1.80-7.70); Neutrophils % (A) 41.9 %; Platelet Count 159 X 10*3/uL (140-440); RBC 5.01 X 10*6/uL (4.40-5.60); RDW 13.5 % (11.5-14.5); WBC 7.51 X 10*3/uL (4.50-10.00)
[2022-12-21 16:32] LABS: ALT 33 U/L (10-49); AST 20 U/L (14-35); Albumin 4.8 g/dL (3.8-4.9); Alkaline Phosphatase 81 U/L (41-126); Blood Urea Nitrogen 15.1 mg/dL (9.0-27.0); Calcium 9.4 mg/dL (8.7-10.3); Carbon Dioxide 26.6 mmol/L (21.6-31.8); Chloride 105 mmol/L (96-109); Glucose 83 mg/dL (70-110); Potassium 4.4 mmol/L (3.5-5.5); Sodium 142 mmol/L (135-145); Total Bilirubin 0.6 mg/dL (0.3-1.2); Total Protein 6.8 g/dL (6.2-8.2)
== END | disposition home or self-care (01) ==
LOC: LABWHC1 10:20
PROVIDERS: ATTEND Psychiatry & Neurology Neurology
DX: G35 Multiple sclerosis (principal); Z79.60 Long term (current) use of unspecified immunomodulators and immunosuppressants; Z79.899 Other long term (current) drug therapy; R56.9 Unspecified convulsions
CPT/HCPCS: 36415; 80053; 85025

== ENCOUNTER → 2023-08-19 | Outpatient (CLI) | payer MEDICARE, OTHER | END | disposition home or self-care (01) | LOC: LABWHC1 10:54 | PROVIDERS: ATTEND Psychiatry & Neurology Neurology | DX: R56.9 Unspecified convulsions (principal) | CPT/HCPCS: 36415; 80177 ==

== ENCOUNTER → 2023-12-16 | Outpatient (CLI) | payer MEDICARE, OTHER ==
[2023-12-16 22:50] LABS: Basophils # (A) 0.08 X 10*3/uL (0.00-0.10); Eosinophils # (A) 0.75 X 10*3/uL (0.04-0.35); Eosinophils % (A) 9.7 %; HGB 14.4 g/dL (13.0-17.0); Lymphocytes # (A) 3.15 X 10*3/uL (0.90-5.00); Lymphocytes % (A) 40.7 %; MCHC 33.5 g/dL (32.0-37.0); MCV 86.5 FL (80.0-97.0); Mean Platelet Volume 9.5 FL (9.5-12.2); Monocytes # (A) 0.45 X 10*3/uL (0.20-1.00); Monocytes % (A) 5.8 %; NRBC Per 100 WBC 0.13 X 10*3/uL (0.00-0.01); Neutrophils # (A) 3.22 X 10*3/uL (1.80-7.70); Neutrophils % (A) 41.6 %; Platelet Count 167 X 10*3/uL (140-440); RBC 4.97 X 10*6/uL (4.40-5.60); RDW 14.7 % (11.5-14.5); WBC 7.74 X 10*3/uL (4.50-10.00)
[2023-12-16 23:09] LABS: ALT 42 U/L (10-49); AST 20 U/L (14-35); Albumin 4.6 g/dL (3.8-4.9); Alkaline Phosphatase 85 U/L (41-126); BUN/Creat Ratio 15.33 Ratio (12.00-20.00); Blood Urea Nitrogen 13.8 mg/dL (9.0-27.0); Calcium 9.4 mg/dL (8.7-10.3); Carbon Dioxide 24.9 mmol/L (21.6-31.8); Chloride 107 mmol/L (96-109); Glucose 83 mg/dL (70-110); Potassium 4.6 mmol/L (3.5-5.5); Sodium 143 mmol/L (135-145); Total Bilirubin 0.5 mg/dL (0.3-1.2); Total Protein 6.6 g/dL (6.2-8.2)
== END | disposition home or self-care (01) ==
LOC: LABWHC1 11:09
PROVIDERS: ATTEND Psychiatry & Neurology Neurology
DX: G35 Multiple sclerosis (principal); Z79.899 Other long term (current) drug therapy
CPT/HCPCS: 36415; 80053; 85025

== ENCOUNTER → 2024-08-15 | Outpatient (CLI) | payer MEDICARE, OTHER | END | disposition home or self-care (01) | LOC: LABWHC1 11:45 | PROVIDERS: ATTEND Psychiatry & Neurology Neurology | DX: R56.9 Unspecified convulsions (principal) | CPT/HCPCS: 36415; 80177 ==